=== PATIENT | female | born 1995 | race Caucasian/White ===

== ENCOUNTER 2018-11-27 13:01 | Emergency (ER) | payer OTHER ==
[2018-11-27 14:35] LABS: BASOPHILS % (AUTO) 0.5 %; EOSINOPHILS # (AUTO) 0.3 10^3/uL (0.0-0.7); EOSINOPHILS % (AUTO) 3.2 %; HGB - HEMOGLOBIN 12.4 g/dL (12.0-16.0); LYMPHOCYTES # (AUTO) 2.1 10^3/uL (1.5-3.5); MEAN CORPUSCULAR HEMOGLOBIN 29.8 pg (27.0-31.0); MEAN CORPUSCULAR HGB CONC 34.3 g/dL (32.0-36.0); MEAN CORPUSCULAR VOLUME 86.9 fL (81.0-99.0); MEAN PLATELET VOLUME 6.9 fL (7.9-10.8); MONOCYTES # (AUTO) 0.5 10^3/uL (0.0-1.0); MONOCYTES % (AUTO) 6.2 %; NEUTROPHILS # (AUTO) 5.4 10^3/uL (1.5-6.6); NEUTROPHILS % (AUTO) 65.1 %; PLT - PLATELET COUNT 313 10^3/uL (130-450); RED BLOOD COUNT 4.15 10^6/uL (4.20-5.40); RED CELL DISTRIBUTION WIDTH 12.8 % (12.0-15.0); WHITE BLOOD COUNT 8.3 x10^3/uL (4.8-10.8)
[2018-11-27 14:42] LABS: BILIRUBIN,URINE NEGATIVE (NEGATIVE); GLUCOSE, URINE (UA) NEGATIVE (NEGATIVE); KETONES,URINE (UA) NEGATIVE (NEGATIVE); LEUKOCYTE ESTERASE, URINE NEGATIVE (NEGATIVE); NITRITE,URINE NEGATIVE (NEGATIVE); OCCULT BLOOD,URINE NEGATIVE (NEGATIVE); PROTEIN,URINE NEGATIVE (NEGATIVE); UROBILINOGEN,URINE 0.2 (NORMAL) E.U./dL (NORMAL)
[2018-11-27 14:47] LABS: CLARITY,URINE CLEAR (CLEAR)
[2018-11-27 14:54] LABS: ALBUMIN 4.4 g/dL (3.2-5.5); ALBUMIN/GLOBULIN RATIO 1.3 (1.0-2.2); BILIRUBIN,TOTAL 0.4 mg/dL (0.2-1.0); CALCIUM 9.6 mg/dL (8.5-10.3); CREATININE 0.5 mg/dL (0.4-1.0); TOTAL PROTEIN 7.9 g/dL (6.7-8.2)
[2018-11-27 15:05] LABS: HCG,QUALITATIVE BLOOD POSITIVE
--- NOTE | 2018-11-27 16:10 | ED Physician Documentation ---
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 She states that she has had some episodic pain similar to this over the course of this but today this has persisted and has become rhythmic. She has not had any bleeding and she has not been into see the INSURANCE MARKETING REP doctor as yet. She indicates her prior 2 pregnancies were without incident she is Rh- and she does not otherwise feel ill Review of Systems Constitutional: denies: Fever, Chills, Myalgias Eyes: denies: Decreased vision Ears: denies: Ear pain Nose: denies: Congestion Throat: denies: Sore throat Respiratory: denies: Cough GI: reports: Abdominal Pain, Nausea. denies: Vomiting : denies: Dysuria, Frequency PD PAST MEDICAL HISTORY - Present Medications Home Medications: Ambulatory Orders Medication Instructions Recorded Confirmed Fluoxetine HCl [Prozac] 40 mg PO DAILY 11/27/18 11/27/18 Pnv95/Ferrous Fumarate/FA 1 each PO DAILY 11/27/18 11/27/18 [ Tablet] buPROPion [Wellbutrin Sr] 150 mg PO BID 11/27/18 11/27/18 - Allergies Allergies/Adverse Reactions: Allergies Allergy/AdvReac Type Severity Reaction Status Date / Time No Known Drug Allergies Allergy Verified 11/27/18 13:23 PD ED PE NORMAL - Vitals Vital signs reviewed: Yes (tachy ) - General General: Alert and oriented X 3, No acute distress, Well developed/nourished - HEENT HEENT: Atraumatic, PERRL, EOMI - Neck Neck: Supple, no meningeal sign - Respiratory Respiratory: No respiratory distress - Abdomen Abdomen: Soft, Non tender - Back Back: No CVA TTP, No spinal TTP - Derm Derm: Normal color, Warm and dry, No rash - Extremities Extremities: No deformity, No edema - Neuro Neuro: Alert and oriented X 3, No motor deficit, No sensory deficit, Normal speech Eye Opening: Spontaneous Motor: Obeys Commands Verbal: Oriented GCS Score: 15 - Psych Psych: Normal mood, Normal affect Results - Vitals Vitals: Vital Signs - 24 hr 11/27/18 13:20 Temperature 36.3 C L Heart Rate 104 H Respiratory 14 Rate Blood Pressure 119/67 O2 Saturation 100 Oxygen O2 Source Room air - Labs Labs: Laboratory Tests 11/27/18 11/27/18 11/27/18 14:30 14:30 14:30 WBC 8.3 RBC 4.15 L Hgb 12.4 Hct 36.1 L MCV 86.9 MCH 29.8 MCHC 34.3 RDW 12.8 Plt Count 313 MPV 6.9 L Neut # (Auto) 5.4 Lymph # (Auto) 2.1 [place] # (Auto) 0.5 Eos # (Auto) 0.3 Baso # (Auto) 0.0 Absolute Nucleated RBC 0.00 Nucleated RBC % 0.0 Sodium 136 Potassium 4.0 Chloride 102 Carbon Dioxide 23 Anion Gap 11.0 BUN 8 Creatinine 0.5 Estimated GFR (MDRD) 153 Glucose 105 H Calcium 9.6 Total Bilirubin 0.4 AST 19 ALT 12 Alkaline Phosphatase 58 Total Protein 7.9 Albumin 4.4 Globulin 3.5 Albumin/Globulin Ratio 1.3 Lipase 26 Serum HCG, Qual POSITIVE Urine Color Urine Clarity Urine pH Ur Specific [place] Urine Protein Urine Glucose (UA) Urine Ketones Urine Occult Blood Urine Nitrite Urine Bilirubin Urine Urobilinogen Ur Leukocyte Esterase Ur Microscopic Review Urine Culture Comments 11/27/18 14:34 WBC RBC Hgb Hct MCV MCH MCHC RDW Plt Count MPV Neut # (Auto) Lymph # (Auto) [place] # (Auto) Eos # (Auto) Baso # (Auto) Absolute Nucleated RBC Nucleated RBC % Sodium Potassium Chloride Carbon Dioxide Anion Gap BUN Creatinine Estimated GFR (MDRD) Glucose Calcium Total Bilirubin AST ALT Alkaline Phosphatase Total Protein Albumin Globulin Albumin/Globulin Ratio Lipase Serum HCG, Qual Urine Color YELLOW Urine Clarity CLEAR Urine pH 7.0 Ur Specific [place] 1.010 Urine Protein NEGATIVE Urine Glucose (UA) NEGATIVE Urine Ketones NEGATIVE Urine Occult Blood NEGATIVE Urine Nitrite NEGATIVE Urine Bilirubin NEGATIVE Urine Urobilinogen 0.2 (NORMAL) Ur Leukocyte Esterase NEGATIVE Ur Microscopic Review NOT INDICATED Urine Culture Comments NOT INDICATED Procedures - Bedside sono Bedside sono by EMP: With use of bedside ultrasound the pelvis is imaged there is a intrauterine with a fetus with a heart rate of 156 and the gestational age is estimated 9 weeks 1 day by crown-rump length. PD MEDICAL DECISION MAKING - ED course Complexity details: reviewed results, re-evaluated patient, considered differential, d/w patient ED course: 23-year-old female with pelvic cramping has a viable 9-week fetus that is intrauterine. She has no evidence of infection. She has no bleeding. She is reassured and given instructions for threatened miscarriage. Departure - Departure Disposition: 01 Home, Self Care Clinical Impression: Threatened affecting intrauterine Condition: Stable Instructions: ED Miscarriage Poss Follow-Up: NICOL MATHIS DO [Primary Care Provider] -
[2018-11-27 16:13] VITALS: BP 108/67
== END 2018-11-27 16:34 | disposition home or self-care (01) ==
LOC: ED 13:01
DX: O20.0 Threatened abortion (principal); Z3A.09 9 weeks gestation of pregnancy
CPT/HCPCS: 36415; 80053; 81001; 81003; 83690; 84703; 85025; 87086; 99283

== ENCOUNTER 2019-01-08 11:19 | Emergency (ER) | payer OTHER ==
--- NOTE | 2019-01-08 12:47 | ED Physician Documentation ---
History of Present Illness - Stated complaint Stated Complaint: F[place]ON - Chief complaint Chief Complaint: General - History obtained from History obtained from: Patient - Additonal information Additional information: Patient is a G3, P2 approximately 16 weeks 23-year-old female presenting with persistent headache. Patient reports that she has had headaches in her previous pregnancies and has been dealing with a headache throughout this . Patient has contacted her primary care physician, as well as WELL DRILL OPERATOR and all have recommended Tylenol. Patient has tried Tylenol and caffeine with minimal relief. Patient has tried magnesium in prior pregnancies, but not this . Patient denies vision component, photosensitivity, neck pain, fever, nausea, vomiting, abdominal pain or cramping, vaginal bleeding or other concerns. Patient saw her WELL DRILL OPERATOR earlier this week.No other improving or worsening factors noted. Review of Systems Constitutional: denies: Fever Eyes: denies: Loss of vision, Photophobia GI: denies: Abdominal Pain, Nausea, Vomiting, Diarrhea : denies: Dysuria Musculoskeletal: denies: Neck pain, Back pain PD PAST MEDICAL HISTORY - Past Medical History Cardiovascular: None Respiratory: None Neuro: None Endocrine/Autoimmune: None GI: None GAS TENDER: None : None HEENT: None Psych: Depression, Anxiety Musculoskeletal: None Derm: None - Past Surgical History Past Surgical History: Yes /GAS TENDER: section HEENT: Tonsil/Adenoidectomy - Present Medications Home Medications: Ambulatory Orders Medication Instructions Recorded Confirmed Fluoxetine HCl [Prozac] 40 mg PO DAILY 11/27/18 11/27/18 Pnv95/Ferrous Fumarate/FA 1 each PO DAILY 11/27/18 11/27/18 [ Tablet] buPROPion [Wellbutrin Sr] 150 mg PO BID 11/27/18 11/27/18 RX: Magnesium Citrate 125 mg PO DAILY PRN #14 capsule 01/08/19 - Allergies Allergies/Adverse Reactions: Allergies Allergy/AdvReac Type Severity Reaction Status Date / Time No Known Drug Allergies Allergy Verified 11/27/18 13:23 - Social History Does the pt smoke?: No Smoking Status: Never smoker Does the pt drink ETOH?: No Does the pt have substance abuse?: No - Immunizations Immunizations are current?: Yes PD ED PE NORMAL - Vitals Vital signs reviewed: Yes - General General: Alert and oriented X 3, No acute distress, Well developed/nourished - HEENT HEENT: Atraumatic, PERRL (No nystagmus. Gross visual acuity intact.), EOMI, Moist mucous membranes, Pharynx benign, Dentition benign - Neck Neck: Supple, no meningeal sign, No bony TTP - Cardiac Cardiac: RRR, No murmur - Respiratory Respiratory: No respiratory distress, Clear bilaterally - Abdomen Abdomen: Normal bowel sounds, Soft, Non tender, Non distended (Mildly gravid) - Derm Derm: Normal color, Warm and dry, No rash - Extremities Extremities: No deformity, No tenderness to palpate, No edema, No calf tenderness / cord - Neuro Neuro: Alert and oriented X 3, No motor deficit, No sensory deficit - Psych Psych: Normal mood Results - Vitals Vitals: Vital Signs - 24 hr 01/08/19 01/08/19 11:21 13:16 Temperature 36.7 C 36.3 C L Heart Rate 100 78 Respiratory 18 13 Rate Blood Pressure 117/75 96/60 O2 Saturation 100 100 Oxygen O2 Source Room air PD MEDICAL DECISION MAKING - ED course Complexity details: considered differential, d/w patient, d/w family ED course: Patient presenting with acute on chronic headache in , likely tension or related. Do not have high suspicion for migraine, intracranial injury including stroke or aneurysm, meningitis, encephalitis, cluster headache, sinusitis. Patient does not endorse symptoms and physical exam findings do not find evidence to indicate gestational hypertension, preeclampsia, help syndrome or other complication related to the fetus. Patient adamantly denies any abdominal or vaginal complaints at this time. Had extensive discussions with patient regarding other medication options and at this time patient declines further interventions except for prescription for magnesium supplement which she has used in prior pregnancies for headache successfully. Advised on use of such, as well as other medications, return precautions, supportive cares and need for close follow-up. Patient and voiced understanding and are comfortable with discharge plan. Departure - Departure Disposition: 01 Home, Self Care Clinical Impression: Headache Condition: Good Instructions: ED Headache Tension Follow-Up: NICOL MATHIS DO [Primary Care Provider] - Within 3 Days Prescriptions: RX: Magnesium Citrate 125 mg PO DAILY PRN #14 capsule PRN Reason: Headache Comments: Please continue vitamins and other supplemental cares for headache including Tylenol. May use magnesium as necessary. Also recommend trying alternatives such as massage, heat or ice application, acupuncture. Please follow-up with your primary care physician and WELL DRILL OPERATOR in next 2 to 3 days. Return to ED sooner if experience worsening symptoms or have other concerns. Discharge Date/Time: 01/08/19 13:18
[2019-01-08 13:16] VITALS: BP 96/60
== END 2019-01-08 13:18 | disposition home or self-care (01) ==
LOC: ED 11:19
DX: O99.89 Other specified diseases and conditions complicating pregnancy, childbirth and the puerperium (principal); R51 Headache; Z3A.16 16 weeks gestation of pregnancy
CPT/HCPCS: 99282; 99283

== ENCOUNTER 2019-06-02 11:59 | Outpatient (CLI) | payer OTHER ==
[2019-06-02 12:15] VITALS: BP 122/74
--- NOTE | 2019-06-02 12:38 | PROVIDER PROGRESS NOTE ---
- HPI Current : Current EDU 06/24/19 Gestation 36 Weeks and 6 Days 3 Para 2 Vital Signs Temperature 36.7 C 06/02/19 12:12 Heart Rate 120 H 06/02/19 12:12 Respiratory Rate 17 06/02/19 12:12 Blood Pressure 122/74 06/02/19 12:12 O2 Saturation 100 06/02/19 12:12 Temperature 36.7 C 06/02/19 12:12 Heart Rate 120 H 06/02/19 12:12 Respiratory Rate 17 06/02/19 12:12 Blood Pressure 122/74 06/02/19 12:12 O2 Saturation 100 06/02/19 12:12 This patient came to OB today for an evaluation for vaginal pain back pain and decreased movement. She is actually had patient followed at the [facility]. She will have a repeat in another 2 to 3 weeks.She denies any vaginal bleeding or fluid.She tried to call the office today but could not raise anyone so came to OB instead. - Exam Heart: Heart has a regular rate and rhythm. She is mildly tachycardic, But without symptoms.No murmurs are appreciated. Lungs: Lungs are clear to auscultation bilaterally without wheezes, rales or rhonchi. Abdomen: The abdomen is soft, pliable and nontender.The uterus is soft and nontender. It is gravid. Pelvic: The cervix is closed 50% posterior the fetus is in a -3 station. - Procedures OB Procedure Performed: NST Diagnosis/Indication for NST: Decreased movement NST Procedure: The fetus is reactive. This was read on 06/02/2019. Service Date of procedure: 06/02/19 Findings: Intrauterine at 36 weeks 6 days gestation Decreased movement Vaginal and back pain - Plan Plan: Plan: We discussed the vaginal discomfort in the back pain she is having. I do think this is the uterus and the fetus putting pressure on the pelvic nerves as well as the strain on the back from the advanced age of .Since she has been here the fetus is very active. There is a reactive NST.We talked about the need for good hydration. We talked about drinking 8 to 10, 12 ounce glasses of fluid a day. The patient was reassured.She will be discharged home. She is to follow-up with her OB provider in the next 24 to 48 hours. She will return to OB if she has any further problems.
== END 2019-06-02 13:07 | disposition home or self-care (01) ==
LOC: WFO 11:59 → FBP 12:01 → WFO 13:07
PROVIDERS: ATTEND Obstetrics & Gynecology
DX: O36.8133 Decreased fetal movements, third trimester, fetus 3 (principal); O99.89 Other specified diseases and conditions complicating pregnancy, childbirth and the puerperium; R10.2 Pelvic and perineal pain; M54.9 Dorsalgia, unspecified; Z3A.36 36 weeks gestation of pregnancy
CPT/HCPCS: 99213

== ENCOUNTER 2019-06-15 11:30 | Outpatient (CLI) | payer OTHER ==
[2019-06-15 11:53] LABS: BASOPHILS % (AUTO) 0.4 %; EOSINOPHILS # (AUTO) 0.1 10^3/uL (0.0-0.7); EOSINOPHILS % (AUTO) 1.5 %; HGB - HEMOGLOBIN 9.8 g/dL (12.0-16.0); LYMPHOCYTES # (AUTO) 1.6 10^3/uL (1.5-3.5); LYMPHOCYTES % (AUTO) 18.7 %; MEAN CORPUSCULAR HEMOGLOBIN 26.1 pg (27.0-31.0); MEAN CORPUSCULAR HGB CONC 30.7 g/dL (32.0-36.0); MEAN CORPUSCULAR VOLUME 85.1 fL (81.0-99.0); MEAN PLATELET VOLUME 9.8 fL (7.9-10.8); MONOCYTES # (AUTO) 0.6 10^3/uL (0.0-1.0); MONOCYTES % (AUTO) 6.7 %; NEUTROPHILS # (AUTO) 5.9 10^3/uL (1.5-6.6); NEUTROPHILS % (AUTO) 71.5 %; PLT - PLATELET COUNT 251 10^3/uL (130-450); RED BLOOD COUNT 3.75 10^6/uL (4.20-5.40); RED CELL DISTRIBUTION WIDTH 14.9 % (12.0-15.0); WHITE BLOOD COUNT 8.3 x10^3/uL (4.8-10.8)
== END 2019-06-15 11:31 | disposition home or self-care (01) ==
LOC: LAB 11:30
PROVIDERS: ATTEND Obstetrics & Gynecology
DX: O34.29 Maternal care due to uterine scar from other previous surgery (principal); Z01.812 Encounter for preprocedural laboratory examination; Z3A.00 Weeks of gestation of pregnancy not specified
CPT/HCPCS: 36415; 85025; 86850; 86900; 86901

== ENCOUNTER 2019-06-17 05:22 | Inpatient (IN) | payer OTHER ==
[2019-06-17] MEDS ORDERED: ceFAZolin 2 GM in SODIUM CHLORIDE 0.9% 100ML 100 ML IV ONE (05:53)
[2019-06-17] MEDS ORDERED: SODIUM CHLORIDE FLUSH 0.9% 10 ML SYRINGE ONE (06:00)
[2019-06-17] MEDS ORDERED: LACTATED RINGERS 1,000 ML IV SCH ×2 (06:00→09:00)
--- NOTE | 2019-06-17 07:06 | HISTORY & PHYSICAL EXAMINATION ---
Admit History - Visit Reason Visit Reason: Other - : 3 Parity: 2 Premature: 0 Ectopic: 0 : 0 Care: positive: Alyssa Risk/History: positive: Previous , Gestational diabetes Complications This : positive: Gestational diabetes Smoking Status: Never smoker - Mother's Labs Mother's Blood Type: positive: O Mother's RH: positive: Negative GBS: positive: Group B Step Negative Rubella Status: positive: Immune - Other Maternal History Other Maternal History: c/b: 1: A1GDM 2: prior x 2 3: maternal history of depression, no current medications or treatment Meds/Allgy - Home Medications Home Medications: Ambulatory Orders Medication Instructions Recorded Confirmed Fluoxetine HCl [Prozac] 40 mg PO DAILY 11/27/18 11/27/18 Pnv No.95/Ferrous Fum/Folic AC 1 each PO DAILY 11/27/18 11/27/18 [ Tablet] buPROPion [Wellbutrin Sr] 150 mg PO BID 11/27/18 11/27/18 Magnesium Citrate 125 mg PO DAILY PRN #14 capsule 01/08/19 - Allergies Allergies/Adverse Reactions: Allergies Allergy/AdvReac Type Severity Reaction Status Date / Time No Known Drug Allergies Allergy Verified 11/27/18 13:23 Review of Systems - Constitutional Constitutional: denies: Fever, Chills - Eyes Eyes: denies: Spots in vision - Cardiovascular Cariovascular: denies: Palpitations, Chest pain - Respiratory Respiratory: denies: SOB at rest - Gastrointestinal Gastrointestinal: denies: Abdominal pain - Integumentary Integumentary: denies: Rash - Psychiatric Psychiatric: denies: Depression Physical - Abdominal Exam Vital Signs: Temp Pulse Resp BP Pulse Ox 97.7 F 100 18 125/83 H 100 06/17/19 05:40 06/17/19 05:40 06/17/19 05:40 06/17/19 05:40 06/17/19 05:40 Contraction Frequency (min/apart): none Uterine Resting Tone: positive: Soft - Monitoring Heart Rate Baseline: 140 Strip Review: positive: Category I - Presentation Presentation: positive: Vertex (by [employer]) - Vaginal Exam Membranes: positive: Membranes intact - Speculum Exam Speculum Exam Performed: positive: No Plan for Labor - Plan For Labor I expect patient to be DC'd or transferred within 96 hours.: Yes Plan for Labor: 23 yo at 39+0 wga admitted for planned RLTCD. NKDA. BMI 31. c/b A1GDM, prior x 2, maternal hx of depression. FHR reactive on NST. EFW 3204g (56%ile) on 16DEC growth scan. No labor complaints. -consents signed/on chart -PPH risk is medium d/t prior uterine scar -Anesthesia consult for spinal -Mirena insertion post-placenta at pt request -routine postoperative care
--- NOTE | 2019-06-17 07:11 | ANESTHESIA ---
Pre-Anesthesia VS, & Labs - Diagnosis repean section - Procedure repeat section Vital Signs: Temp Pulse Resp BP Pulse Ox 36.5 C 100 18 125/83 H 100 06/17/19 05:40 06/17/19 05:40 06/17/19 05:40 06/17/19 05:40 06/17/19 05:40 Height 5 ft 1 in Weight (kg) 76.1 kg Body Mass Index 26.4 - NPO >8 hours - Is Patient ?: Yes Home Medications and Allergies Active Medications Lactated Ringer's (Lr) 1,000 mls @ 0 mls/hr IV .Q0M SANG Last Admin: 06/17/19 06:17 Dose: 30 mls/hr Fluoxetine HCl [Prozac] 40 mg PO DAILY 11/27/18 Pnv No.95/Ferrous Fum/Folic AC [ Tablet] 1 each PO DAILY 11/27/18 buPROPion [Wellbutrin Sr] 150 mg PO BID 11/27/18 Allergies/Adverse Reactions: Allergies Allergy/AdvReac Type Severity Reaction Status Date / Time No Known Drug Allergies Allergy Verified 11/27/18 13:23 Anes History & Medical History - Anesthetic History Anesthesia Complications: reports: No previous complications - Medical History Cardiovascular: reports: None Pulmonary: reports: None Gastrointestinal: reports: None Urinary: reports: None Neuro: reports: None Musculoskeletal: reports: None Endocrine/Autoimmune: reports: None Blood Disorders: reports: None Skin: reports: None Smoking Status: Never smoker - Surgical History Eyes Ears Nose Throat (EENT): Tonsil/Adenoidectomy Gynecologic: section Exam General: Alert Dental: WNL Mallampati classification: II Respiratory: Lungs clear Cardiovascular: Regular rate, Normal S1, Normal S2 Plan Anesthesia Type: Spinal Consent for Procedure(s) Verified and Reviewed: Yes Code Status: Attempt Resuscitation ASA classification: 2-Mild systemic disease Is this case an emergency?: No
[2019-06-17] MEDS ORDERED: LEVONORGESTREL 20 MCG/24H IUD IY ONE ×2 (07:19→08:14)
[2019-06-17] MEDS ORDERED: LACTATED RINGERS 1,000 ML IV ONE ×2 (08:00→08:15)
[2019-06-17] MEDS ORDERED: ONDANSETRON 4 MG/2 ML VIAL IVP PRN (08:56)
[2019-06-17] MEDS ORDERED: OXYTOCIN/DEXTROSE 5 % 30 UNIT/500 ML BAG IV PRN (08:56)
[2019-06-17] MEDS ORDERED: SODIUM CHLORIDE FLUSH 0.9% 10 ML SYRINGE IVP SCH (09:00)
--- NOTE | 2019-06-17 09:07 | OPERATIVE REPORT ---
Operative Report - General Admit Date: 06/17/19 Planned Procedure: repeat low transverse delivery, insertion of Mirena IUD Pre-Op Diagnosis: uterus at 39+0 wga, prior uterine scar Procedure Performed: repeat low transverse delivery, insertion of Mirena IUD Post Op Diagnosis: same as above, delivered - Procedure Note Primary Surgeon: Kamryn Lawrence Secondary Surgeon: Juan Francis Anesthesia Provider: Lissette Mosley Anesthesia Technique: Spinal Pathology: none IV Fluids (mL): 1,500 Estimated Blood Loss (mL): 650 Urine Output (mL): 150 Indications: uterus at 39+0 wga, prior uterine scar x 2 Findings: Moderate suprafascial adhesive disease, bladder scarred to lower uterine segment. Single layer closure of hysterotomy. Normal bilateral ovaries and fallopian tubes. Delivery of viable female with 9 and 9. Mirena inserted with Lot #[id number], sterility expiration Aug 2021. No complications. Complications: none - Other Other Information/Narrative: After informed consent was assured, pt was taken to the OR with IV fluids running. Spinal anesthesia was obtained. Pt was positioned dorsal supine with right hip roll. Varela catheter was placed. Doptones following anesthesia were 150s. The patient was prepped and draped in a sterile fashion. Anesthesia was tested and confirmed to be adequate. Pfannenstiel incision made through existing scar and carried sharply down to the rectus which was scored on each side. The fascia was noted to be densely scarred to the underlying rectus muscle. Fascial incision was extended laterally with scissors on each side. The fascia was then dissected off the rectus muscles both caudad and cephalad. The rectus muscles were in the midline and the peritoneum was identified and entered sharply. The peritoneal incision was bluntly extended with good exposure of the lower uterine segment. A bladder flap was created sharply; the bladder was moderately adhered to the lower uterine segment, and during development of the bladder flap a small hematoma was created in the vesico-uterine space. A transverse incision was made in the lower uterine segment, with amniotomy and return of clear fluid. The incision was extended bluntly with cephalad-caudad traction. The 's head was grasped and delivered through the incision, body followed controlled. Good tone but and cry on the field; cord was clamped x 2 and cut, passed off the field. Cord blood was collected. The placenta was delivered intact with gentle cord traction. The uterus was exteriorized and the cavity was swept with no retained tissue noted. The hysterotomy was reapproximated with a running locked suture of 0 chromic. Immediately prior to final closure of the hysterotomy, the Mirena IUD was inserted to the fundus and the arms deployed. The strings were gently guided towards the cervix with a hemostat. Good hemostasis was noted. Good fundal tone throughout repair. The uterus was returned to the abdomen. The fascia was reapproximated with a running suture of 0 PDS. The subcutaneous space was reapproximated with interrupted sutures of 2-0 vicryl to reduce tension on the skin closure. The skin was closed with a subcuticular suture of 4-0 monocryl. Steristrips were placed over the incision and it was covered with a pressure dressing. A final crede expressed small clot and revealed excellent uterine tone. Sponge and instrument counts were correct. No complications appreciated. The patient was stable and was taken to Labor and Delivery to recover.
[2019-06-17] MEDS: oxyCODONE 5 MG TABLET PO PRN (10:54)
[2019-06-17] MEDS: SIMETHICONE CHEW 80 MG TABLET PO SCH ×2 (14:38→20:55)
[2019-06-17] MEDS: KETOROLAC 30 MG/ML VIAL IVP SCH ×2 (14:38→20:55)
[2019-06-17] MEDS: ACETAMINOPHEN 500 MG TABLET PO SCH (16:17)
[2019-06-17] MEDS: DOCUSATE SODIUM 100 MG CAPSULE PO SCH (20:54)
[2019-06-17] MEDS: SODIUM CHLORIDE FLUSH 0.9% 10 ML SYRINGE IVP PRN (20:55)
[2019-06-18] MEDS: ACETAMINOPHEN 500 MG TABLET PO SCH ×3 (00:21→18:25)
[2019-06-18] MEDS: KETOROLAC 30 MG/ML VIAL IVP SCH (02:47)
[2019-06-18] MEDS: SODIUM CHLORIDE FLUSH 0.9% 10 ML SYRINGE IVP PRN (02:48)
[2019-06-18 06:24] LABS: BASOPHILS % (AUTO) 0.3 %; EOSINOPHILS # (AUTO) 0.2 10^3/uL (0.0-0.7); EOSINOPHILS % (AUTO) 2.1 %; HGB - HEMOGLOBIN 8.6 g/dL (12.0-16.0); LYMPHOCYTES # (AUTO) 1.1 10^3/uL (1.5-3.5); LYMPHOCYTES % (AUTO) 10.5 %; MEAN CORPUSCULAR HEMOGLOBIN 25.8 pg (27.0-31.0); MEAN CORPUSCULAR HGB CONC 30.7 g/dL (32.0-36.0); MEAN CORPUSCULAR VOLUME 84.1 fL (81.0-99.0); MEAN PLATELET VOLUME 9.9 fL (7.9-10.8); MONOCYTES # (AUTO) 0.6 10^3/uL (0.0-1.0); NEUTROPHILS # (AUTO) 8.2 10^3/uL (1.5-6.6); NEUTROPHILS % (AUTO) 80.3 %; PLT - PLATELET COUNT 265 10^3/uL (130-450); RED BLOOD COUNT 3.33 10^6/uL (4.20-5.40); WHITE BLOOD COUNT 10.2 x10^3/uL (4.8-10.8)
--- NOTE | 2019-06-18 06:52 | DELIVERY NOTE ---
Delivery Note - Labor Labor: positive: Other - Delivery Method Delivery Method: positive: Repeat - Presentation Presentation: positive: Vertex, LOT - left occiput transverse - Nuchal Cord Nuchal Cord: positive: None - Anesthetic Anesthetic Type: - Amniotic Fluid Description Amniotic Fluid Description: positive: Clear - Delivery Outcome Delivery Outcome: positive: Livebirth - Liberal: positive: Warmed Liberal sex: positive: Female - Placenta Placenta: positive: Expressed - Estimated Blood Loss Estimated Blood Loss (in cc): 650 - Post Delivery Events Post Delivery Events: positive: No post delivery events - Delivery Comments (Free Text/Narrative) Delivery Comments (Free Text/Narrative): Uncomplicated delivery of viable female infant, 9 and 9, via planned RLTCD. Single layer uterine closure. See operative report for full details.
--- NOTE | 2019-06-18 06:56 | PROVIDER PROGRESS NOTE ---
Subjective - Prog Note Date Prog Note Date: 06/18/19 Prog Note Time: 06:55 - Subjective Pt reports feeling: Improved Subjective: Doing well. Ambulating without difficulty. Voiding spontaneously. No BM yet. Tolerating regular diet, no n/v. Lochia is scant. without issue. Mood is good. Objective - Vital Signs/Intake & Output Vital Signs: Vital Signs x48h Temp Pulse Resp BP Pulse Ox 06/18/19 04:25 97.9 F 94 16 109/57 L 98 06/18/19 00:20 98.2 F 92 18 105/58 L 98 Intake & Output: Intake & Output 06/15/19 06/16/19 06/17/19 06/18/19 23:59 23:59 23:59 23:59 Intake Total 2450 Output Total 1570 550 Balance 880 -550 - Objective General Appearance: positive: No acute distress, Alert Abdomen: positive: Non-tender (soft. Fundus firm at U-1. Dressing in place with some strikethrough in midportion.) Skin: positive: Color nml Extremities: positive: Non-tender Neurologic/Psychiatric: positive: Oriented x3 - Lab Results Fish Bones: 06/18/19 05:10 Other Labs: Lab Results x24hrs 06/18/19 Range/Units 05:10 WBC 10.2 (4.8-10.8) x10^3/uL RBC 3.33 L (4.20-5.40) 10^6/uL Hgb 8.6 L (12.0-16.0) g/dL Hct 28.0 L (37.0-47.0) % MCV 84.1 (81.0-99.0) fL MCH 25.8 L (27.0-31.0) pg MCHC 30.7 L (32.0-36.0) g/dL RDW 15.0 (12.0-15.0) % Plt Count 265 (130-450) 10^3/uL MPV 9.9 (7.9-10.8) fL Neut # (Auto) 8.2 H (1.5-6.6) 10^3/uL Lymph # (Auto) 1.1 L (1.5-3.5) 10^3/uL [place] # (Auto) 0.6 (0.0-1.0) 10^3/uL Eos # (Auto) 0.2 (0.0-0.7) 10^3/uL Baso # (Auto) 0.0 (0.0-0.1) 10^3/uL Absolute Nucleated RBC 0.00 x10^3/uL Nucleated RBC % 0.0 /100WBC Assessment/Plan - Problem List (1) state Impression: 23 yo POD#1 s/p RLTCD. c/b A1GDM. Rh negative, rubella immune. VS wnl, exam benign. Hct 31-->28. . Mirena in place for contraception. -Routine postoperative care -Iron and vitamin C for postoperative anemia -RhIg work-up and injection if indicated by infant blood type -Dispo: home tomorrow
[2019-06-18] MEDS ORDERED: MORPHINE PF 5 MG/10 ML AMP EP ONE (08:55)
[2019-06-18] MEDS ORDERED: ePHEDrine 50 MG/ML VIAL IVP ONE (08:55)
[2019-06-18] MEDS ORDERED: KETOROLAC 30 MG/ML VIAL IVP ONE (08:55)
[2019-06-18] MEDS: SIMETHICONE CHEW 80 MG TABLET PO SCH ×2 (09:54→21:23)
[2019-06-18] MEDS: FERROUS SULFATE 325 MG TABLET PO SCH ×2 (09:54→21:23)
[2019-06-18] MEDS: DOCUSATE SODIUM 100 MG CAPSULE PO SCH ×2 (09:54→21:23)
[2019-06-18] MEDS: IBUPROFEN 800 MG TABLET PO SCH ×2 (10:55→19:03)
[2019-06-18] MEDS: ASCORBIC ACID CHEW 500 MG TABLET PO SCH ×2 (18:26→21:23)
[2019-06-18] MEDS: oxyCODONE 5 MG TABLET PO PRN ×2 (19:02→23:11)
[2019-06-19] MEDS: ACETAMINOPHEN 500 MG TABLET PO SCH ×2 (01:42→09:10)
[2019-06-19] MEDS: IBUPROFEN 800 MG TABLET PO SCH ×2 (01:42→09:11)
[2019-06-19 07:38] VITALS: BP 104/61
--- NOTE | 2019-06-19 08:20 | PROVIDER PROGRESS NOTE ---
Subjective - Prog Note Date Prog Note Date: 06/19/19 Prog Note Time: 08:18 - Subjective Pt reports feeling: Improved Subjective: Doing well with no acute complaints. Reports some increased incisional pain yesterday after increased activity, relieved by roxicodone, last dose last night. Lochia is scant. No lightheadedness. No n/v, tolerating regular diet. VOiding without difficulty. Passing flatus. Mood is good. with some nipple pain but improved with lanolin. Objective - Vital Signs/Intake & Output Reviewed Vital Signs: Yes Vital Signs: Vital Signs x48h Temp Pulse Resp BP Pulse Ox 06/19/19 07:37 98.6 F 87 18 104/61 99 06/19/19 05:20 98.2 F 95 18 109/69 99 06/19/19 01:50 98.2 F 78 14 96/52 L 100 Intake & Output: Intake & Output 06/16/19 06/17/19 06/18/19 06/19/19 23:59 23:59 23:59 23:59 Intake Total 2450 Output Total 1570 1075 Balance 880 -1075 - Objective General Appearance: positive: No acute distress, Alert Abdomen: positive: Non-tender, No distention (soft. Pfannenstiel c/d/i, steristrips in place) Skin: positive: Color nml Extremities: positive: Non-tender Neurologic/Psychiatric: positive: Oriented x3 - Lab Results Fish Bones: 06/18/19 05:10 Assessment/Plan - Problem List (1) state Impression: 23 yo POD#2 s/p RLTCD. c/b A1GDM. Rh negative, rubella immune. VS wnl, exam benign. Hct 31-->28. . Mirena in place for contraception. -Routine postoperative care -Iron and vitamin C for postoperative anemia -Infant Rh neg, RhIg not indicated -Dispo: home today
--- NOTE | 2019-06-19 08:23 | DISCHARGE SUMMARY ---
"Discharge Summary Admit Date: 06/17/19 Discharge Date: 06/19/19 Discharging Provider: Kamryn Lawrence Code Status: Attempt Resuscitation Condition at Discharge: Good Discharge Disposition: 01 Home, Self Care - DIAGNOSES Admission Diagnoses: 1. uterus at 39+0 wga 2. Prior uterine scar 3. Mild anemia of Discharge Diagnoses with Status of Each Condition: same as above, delivered - HPI History of Present Illness: 23 yo admitted at 39+0 wga for planned RLTCD. - CONSULTS | PROCEDURES Consultations: anesthesia Procedures: 1. external monitoring 2. spinal anesthesia 3. repeat low transverse delivery 4. Mirena IUD insertion - HOSPITAL COURSE Hospital Course: Pt underwent uncomplicated RLTCD. On POD#1 her fuchs catheter was removed and she was able to void without difficulty. She remained afebrile and normotensive throughout her course. At the time of discharge she was ambulating, voiding, passing flatus, tolerating regular diet and pain was controlled with oral medications. She was discharged home in good condition with close interval follow up. - ALLERGIES Allergies/Adverse Reactions: Allergies Allergy/AdvReac Type Severity Reaction Status Date / Time No Known Drug Allergies Allergy Verified 11/27/18 13:23 - MEDICATIONS Home Medications: Ambulatory Orders Medication Instructions Recorded Confirmed Pnv No.95/Ferrous Fum/Folic AC 1 each PO DAILY 11/27/18 06/19/19 [ Tablet] Home Medications Other | Comments: 1. Ibuprofen 800 mg take 1 tab by mouth every 8 hours 2. Tylenol 325 mg take 3 tabs by mouth every 6 hours 3. Roxicodone 5 mg take 1 tab by mouth every 4-6 hours as needed for pain not relieved by other medications 4. Surfak 240 mg take 1 cap by mouth twice daily - PHYSICAL EXAM AT DISCHARGE General Appearance: positive: No acute distress (see progress note for full exam) - LABS Result Diagrams: 06/18/19 05:10 - QUALITY (Female Hip Fx Only) Was patient sent home on osteoporosis medication?: No - FOLLOW UP Follow Up: Follow up with Dr. Lawrence as scheduled at [facility] - TIME SPENT Time Spent in Discharge (Minutes): 30"
[2019-06-19] MEDS: ASCORBIC ACID CHEW 500 MG TABLET PO SCH (09:11)
[2019-06-19] MEDS: DOCUSATE SODIUM 100 MG CAPSULE PO SCH (09:11)
[2019-06-19] MEDS: FERROUS SULFATE 325 MG TABLET PO SCH (09:11)
[2019-06-19] MEDS: oxyCODONE 5 MG TABLET PO PRN (10:33)
== END 2019-06-19 11:00 | disposition home or self-care (01) | DRG 788 ==
LOC: FBP 05:22
PROVIDERS: ADMIT Obstetrics & Gynecology; ATTEND Obstetrics & Gynecology
PROC: 0UH90HZ Insertion of Contraceptive Device into Uterus, Open Approach (ICD-10-PCS; 2019-06-17)
PROC: 10D00Z1 Extraction of Products of Conception, Low, Open Approach (ICD-10-PCS; principal; 2019-06-17 07:30)
DX: O34.211 Maternal care for low transverse scar from previous cesarean delivery (principal); O24.429 Gestational diabetes mellitus in childbirth, unspecified control; O99.89 Other specified diseases and conditions complicating pregnancy, childbirth and the puerperium; N73.6 Female pelvic peritoneal adhesions (postinfective); O32.2XX0 Maternal care for transverse and oblique lie, not applicable or unspecified; O99.344 Other mental disorders complicating childbirth; F32.9 Major depressive disorder, single episode, unspecified; O90.81 Anemia of the puerperium; D64.9 Anemia, unspecified; Z67.41 Type O blood, Rh negative; Z3A.39 39 weeks gestation of pregnancy; Z37.0 Single live birth; Z30.8 Encounter for other contraceptive management
CPT/HCPCS: 36415; 85025

== ENCOUNTER 2020-04-20 10:15 | Outpatient (CLI) | payer OTHER ==
--- NOTE | 2020-04-20 17:08 | MRI Report ---
PROCEDURE: Foot RT W/O INDICATIONS: RT FOOT PAIN TECHNIQUE: Noncontrast coronal and sagittal T1 spin echo and STIR; axial T1 spin echo and T2 fast spin echo with fat saturation through the right foot. COMPARISON: None. FINDINGS: Image quality: Excellent. Bones: The visualized bone marrow demonstrates normal signal on all sequences. The overlying cortex appears intact. No fractures lines or intra-osseous lesions. Soft tissues: The scanned muscles demonstrate normal overall bulk and internal signal. Subcutaneous tissues appear normal as well. No soft tissue masses are present. IMPRESSION: 1. No marrow edema. No evidence of stress fracture. 2. No gross abnormalities are seen in right foot soft tissue. No finding to explain patient's symptom s. Reviewed by: Harpreet Hardin MD on 04/20/2020 5:07 PM PDT Approved by: Harpreet Hardin MD on 04/20/2020 5:07 PM PDT Station ID: [id number]
== END 2020-04-20 10:16 | disposition home or self-care (01) ==
LOC: DI 10:15
PROVIDERS: ATTEND Family Medicine
DX: M79.671 Pain in right foot (principal)

== ENCOUNTER 2020-11-27 12:32 | Emergency (ER) | payer OTHER ==
[2020-11-27 12:40] VITALS: BP 136/85
[2020-11-27] MEDS ORDERED: SUCRALFATE 1 GM/10 ML UDC PO STA (12:49)
[2020-11-27] MEDS ORDERED: DEXAMETHASONE 10 MG/ML VIAL PO STA (12:49)
[2020-11-27] MEDS ORDERED: CHERRY SYRUP 10 ML UDC PO ONE (12:49)
[2020-11-27] MEDS ORDERED: LIDOCAINE VISCOUS 2% 15 ML UDC MM STA (12:49)
--- NOTE | 2020-11-27 12:55 | ED Physician Documentation ---
History of Present Illness - Stated complaint Stated Complaint: THROAT PX - Chief complaint Chief Complaint: Heent - History obtained from History obtained from: Patient - History of Present Illness Timing: How many days ago (2) Pain level max: 5 Pain level now: 1 - Additonal information Additional information: 25-year-old female states that she was eating a burger and [place] fries on Friday when she felt like something became stuck in her throat. Since that time she has the sensation of something stuck in her throat. She is eating, drinking and breathing without difficulty. Speaking normally. Worse with swallowing, nothing makes it better. She states occasionally when she swallows pills she feels like they become stuck in her throat as well. No vomiting. Review of Systems Constitutional: denies: Fever, Chills Throat: denies: Sore throat Cardiac: denies: Palpitations Respiratory: denies: Cough GI: denies: Abdominal Pain, Nausea, Vomiting, Diarrhea : denies: Now EGA Skin: denies: Rash Musculoskeletal: denies: Neck pain, Back pain Neurologic: denies: Headache PD PAST MEDICAL HISTORY - Past Medical History Past Medical History: Yes Cardiovascular: None Respiratory: None Neuro: None Endocrine/Autoimmune: None GI: None MANAGER BIOSTATISTICS: None : None HEENT: None Psych: Depression, Anxiety Musculoskeletal: None Derm: None - Past Surgical History Past Surgical History: Yes /MANAGER BIOSTATISTICS: section HEENT: Tonsil/Adenoidectomy - Present Medications Home Medications: Ambulatory Orders Medication Instructions Recorded Confirmed Pnv No.95/Ferrous Fum/Folic AC 1 each PO DAILY 11/27/18 06/19/19 [ Tablet] - Allergies Allergies/Adverse Reactions: Allergies Allergy/AdvReac Type Severity Reaction Status Date / Time No Known Drug Allergies Allergy Verified 11/27/18 13:23 - Social History Does the pt smoke?: No Smoking Status: Never smoker Does the pt drink ETOH?: No Does the pt have substance abuse?: No - Immunizations Immunizations are current?: Yes - POLST Patient has POLST: No PD ED PE NORMAL - Vitals Vital signs reviewed: Yes - General General: Alert and oriented X 3, No acute distress, Well developed/nourished - HEENT HEENT: Moist mucous membranes, Pharynx benign, Other (Normal posterior pharyngeal exam. No trismus. Normal phonation. No stridor or wheezing) - Neck Neck: Supple, no meningeal sign - Cardiac Cardiac: RRR, Strong equal pulses - Respiratory Respiratory: No respiratory distress, Clear bilaterally - Abdomen Abdomen: Soft, Non tender, Non distended - Derm Derm: Warm and dry - Neuro Neuro: Alert and oriented X 3 - Psych Psych: Normal mood, Normal affect Results - Vitals Vitals: Vital Signs - 24 hr 11/27/20 12:37 Temperature 36.5 C Heart Rate 84 Respiratory 16 Rate Blood Pressure 136/85 H O2 Saturation 100 Oxygen O2 Source Room air PD MEDICAL DECISION MAKING - ED course Complexity details: considered differential, d/w patient ED course: Patient given a dose of dexamethasone, Carafate and viscous lidocaine. Will refer her to a surgeon for endoscopy as this seems to be an ongoing issue for the patient. Tolerating p.o. without difficulty here. Handling her secretions without any difficulty. No vomiting. Patient counseled regarding signs and symptoms for which I believe and urgent re-evaluation would be necessary. Patient with good understanding of and agreement to plan and is comfortable going home at this time This document was made in part using voice recognition software. While efforts are made to proofread this document, sound alike and grammatical errors may occur. Departure - Departure Disposition: 01 Home, Self Care Clinical Impression: Odynophagia Condition: Good Instructions: Endoscopy Upper GI Follow-Up: Real Saha MD [Provider Admit Priv/Credential] - Joan Vegas MD [Provider Admit Priv/Credential] - Comments: You should follow up with one of the surgeons for an endoscopy. It is possible that you have rings or strictures in your esophagus. Return if you worsen. Discharge Date/Time: 11/27/20 13:01
== END 2020-11-27 13:01 | disposition home or self-care (01) ==
LOC: ED 12:32
DX: R13.10 Dysphagia, unspecified (principal)
CPT/HCPCS: 99282; 99284; A9270